=== PATIENT | female | born 1955 | race Caucasian/White ===

== ENCOUNTER 2016-11-25 21:22 | Emergency (ER) | payer MEDICARE, OTHER | END 2016-11-26 05:30 | disposition home or self-care (01) | LOC: ER 21:22 | DX: R07.2 Precordial pain (principal); F41.1 Generalized anxiety disorder; F43.0 Acute stress reaction; R11.0 Nausea; Z79.899 Other long term (current) drug therapy; Z88.6 Allergy status to analgesic agent; Z90.49 Acquired absence of other specified parts of digestive tract | CPT/HCPCS: 36415 ==